=== PATIENT | female | born 1975 | race Caucasian/White ===

== ENCOUNTER 2020-03-01 08:35 | Outpatient (CLI) | payer OTHER ==
--- NOTE | 2020-03-04 11:05 | Mammography Report ---
BILATERAL DIGITAL SCREENING MAMMOGRAM 3D/2D: 03/01/2020 CLINICAL: Routine screening. Comparison is made to exams dated: 09/23/2018 mammogram, 05/06/2017 mammogram, and 08/19/2015 mammogram - [facility]. The tissue of both breasts is heterogeneously dense. This may lower the sensi tivity of mammography. No significant masses, calcifications, or other findings are seen in either breast. There has been no significant interval change. IMPRESSION: NEGATIVE There is no mammographic evidence of malignancy. A 1 year screening mammogram is recommended. This exam was interpreted at Station ID: [id number]. NOTE: For mammograms, a report in lay terms will be sent to the patient. Approximately 15% of breast malignancies will not be visualized mammographically. In the management of a palpable breast mass, a negative mammogram must not discourage biopsy of a clinically suspicious lesion. Electronically Signed By: Elayne [email or web address]/[email or web address]:03/01/2020 10:53:51 ACR BI-RADS Category 1: Negative 3341F PARENCHYMAL PATTERN: (D) - The breast(s) demonstrate(s) heterogeneously dense fibroglandular angie roach. BI-RADS CATEGORY: (1) - 1 RECOMMENDATION: (ANNUAL) - Recommend routine annual screening mammography. [id number] 1 year screening LATERALITY: (B)
== END 2020-03-01 08:36 | disposition home or self-care (01) ==
LOC: DI.N 08:35
DX: Z12.31 Encounter for screening mammogram for malignant neoplasm of breast (principal)
CPT/HCPCS: 77067